=== PATIENT | female | born 1980 ===

== ENCOUNTER 2023-10-07 13:36 | Outpatient (REF) | payer MEDICAID, SELFPAY ==
--- OUTSIDE RECORDS SUMMARY | 2023-10-07 13:38 | XMS_ITS ---
Author Organization Unknown Address [address] [place] [phone] Phone Care Team Providers Care Tank Cooper Name Role Phone BRADLEY TEAGUE Registered Nurse Unavailable CATERINA Augustin Attending Unavailable SHERYL Augustin [facility] Unavailable PCP NOT SELECTED Primary Unavailable UNLISTED PROVIDER - REQUESTED Xhandoff Un available Social History Type Status Start Date End Date Code Code Syst em Smoking History Current every day smoker 128421333 SNOMED CT Sex Female Vital Signs Vital Sign Value Unit [place] Value [place] Unit Date/Time Recent/Initial? Code Code System Body Mass Index 23.73 kg/m2 04/28/2023 11:36 Initial 70050 -5 [facility] Systolic Blood Pressure 124 mm[Hg] 04/28/2023 11:36 Initial 8480- 6 [facility] Diastolic Blood Pressure 68 mm[Hg] 04/28/2023 11:36 Initial 8462- 4 [facility] Body Surface Area 1.76 m2 04/28/2023 11:36 Initial 3140- 1 [facility] Height 167.640 0 cm 66.00 in 04/28/2023 11:36 Initial 8302- 2 [facility] O2 Saturation 99 % 2023 11:36 Initial 71535 -5 [facility] Pulse 71.0 /min 04/28/2023 11:36 Initial 8867- 4 [facility] Respiration 16 /min 04/28/19 11:36 Initial 9279- 1 [facility] Temperature 35.9 [place] 96.6 F 04/28/19 11:36 Initial 8310- 5 [facility] Weight 66.68 kg 147.00 lbs 04/28/2023 11:36 Initial 99137 -7 [facility] Medications Medication Start Date End Date Route Frequency Dose Code Code System Medication Instructions Home Meds DULoxetine HCl 60MG Oral Capsule, Delayed Release 04/28/2023 Unknown ORAL DAILY 1 CAPSULE 719252 RxNorm MARTINEZ E 1 CAPSULE ORAL DAILY Lyrica 150MG Oral Capsule 04/28/2023 Unknown ORAL THREE TIMES A DAY 1 CAPSULE 608831 RxNorm TAKE 1 CAPSULE ORAL THREE TIMES A DAY Topiramate 50MG Oral Capsule, Extended Release 04/28/2023 Unknown ORAL DAILY 1 CAPSULE 3612786 RxNorm TAKE 1 CAPSULE ORAL DAILY Assessment You had the following problems:ASTHMACOPPER DEFICIENCY Hospital Discharge Instructions Should you have any questions prior to discharge, please contact a member of your healthcare team. If you have left the hospital and have any questions, please contact your primary care physician. Reason For Referral No Data Found Procedures Procedure Name Date Status Code Code Syste m Neck completed 83074505 SNOMEDCT C section completed 19976712 SNOMEDCT Abscess of breast completed 94733925 SNOMEDC T Problems Problem Start Date Resolved Date Status Code Code System ASTHMA active 579051755 SNOMED-CT COPPER DEFICIENCY active 24866650 SN OMED-CT Allergies and Adverse Reactions Allergy Substance Reaction Severity Start Date Concern Status Co de Code System LORTAB Hives (SNOMED-CT: 207181363) Active 523332 RxNorm Plan of Treatment No Data Found Encounters Encounter Diagnosis Start Date Code Code Sys tem Repeat prescription monitoring 04/28/2023 383749585 SNOMED-CT Personal Care Team Section Performer Name Performer Role Active Date Inactive Tez barton
--- OUTSIDE RECORDS SUMMARY | 2023-10-07 13:38 | XMS_ITS | Data Portability ---
Author Organization [place] - [facility] [place] [address] Assessment No assessment recorded. Plan of Treatment Reminders Order Date Submit Date Provider Last Modified By Organization Details Last Modified Time Details Appointments New Patient 40 2023 10:00A M CAROLINE GAY Not available Not available Not available Follow Up 30 2023 04:10P M CAROLINE GAY Not available Not available Not available Lab None recorded. Referral None recorded. Procedures None recorded. Surgeries None recorded. Imaging None recorded. Medication Orders Symbicort 160 mcg-4.5 mcg/actua tion HFA aerosol inhaler 2022 023 [facility] [address] [facility] [address], [place], [address], 03/08/2023 12:26:54 topiramat e 50 mg tablet 2022 023 [facility] [address] [facility] [address], [place], [address], 03/08/2023 12:26:51 Ventolin HFA 90 mcg/actua tion aerosol inhaler 2022 023 [facility] [address] [facility] [address], [place], [address], 03/08/2023 12:26:52 ipratropi um 0.5 mg-albute rol 3 mg (2.5 mg base)/3 mL nebulizat ion soln 2022 023 [facility] [address] [facility] [address], [place], [address], 03/08/2023 12:26:55 Patient TargetsNo targets recorded. Patient InstructionsNo instructions recorded. Reason for Referral None Reported. 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 Medical Equipment None Reported. Allergies Allergen ID Allergen Name Allergen Category Reaction Reaction Severity Criticality Documentation Date Start Date Code Code System Note Provider Name and Address Organization Details Recorded Time 57514 hydrocodo ne Not available rash moderate low 03/08/2023 5489 RxNorm RONIT Zaragoza [facility], [facility] 12:03:10 No known drug allergies Medications Name Sig Start Date Stop Date Status Note LastModified by Organization Details LastModified Time prednisone 10 mg tablet TAKE 6 TABLETS BY MOUTH ONCE DAILY FOR 2 DAYS THEN DECREASE BY 1 TABLET EVERY 2 DAYS UNTIL GONE 10/06 completed Not Available Not Available Not Available doxycycline hyclate 100 mg capsule TAKE ONE CAPSULE BY MOUTH TWICE A DAY FOR 10 DAYS 10/06 completed Not Available Not Available Not Available ipratropium 0.5 mg-albutero l 3 mg (2.5 mg base)/3 mL nebulizatio n soln Inhale 3 mL 4 times a day by nebulizat ion route as needed. 2023 active Not Available Not Available Not Avai lable pyridoxine (vitamin B6) 100 mg tablet Take 1 tablet every day by oral route. 2023 active Not Available Not Available Not Avai lable Ventolin HFA 90 mcg/actuati on aerosol inhaler Inhale 2 puffs every 4 hours by inhalatio n route. 2023 active Not Available Not Available Not Avai lable copper gluconate 2 mg tablet Take 1 tablet every day by oral route. 2023 active Not Available Not Available Not Avai lable Klor-Con M10 mEq tablet,exte nded release Take 1 tablet every day by oral route. 2023 active Not Available Not Available Not Avai lable topiramate 50 mg tablet Take 1 tablet twice a day by oral route as needed. 2023 active Not Available Not Available Not Avai lable duloxetine 60 mg capsule,del ayed release Take 1 capsule every day by oral route. 2023 active Not Available Not Available Not Avai lable Atrovent HFA 17 mcg/actuati on aerosol inhaler Inhale 2 puffs 4 times a day by inhalatio n route. 2023 active Not Available Not Available Not Avai lable pregabalin 150 mg capsule Take 1 capsule twice a day by oral route. active Not Available Not Available No t Available Diflucan 03/08 completed Not Available Not Available Not Available Symbicort 160 mcg-4.5 mcg/actuati on HFA aerosol inhaler Inhale 2 puffs twice a day by inhalatio n route as needed. 2023 active Not Available Not Available Not Avai lable EpiPen 2-Eugene 0.3 mg/0.3 mL injection, auto-inject or Use to inject as needed with exposure to allergen 2023 active Not Available Not Available Not Avai lable topiramate XR 50 mg capsule sprinkle,ex tended release 24 hr Take 1 capsule every day by oral route. 2023 active Not Available Not Available Not Avai lable Vitals Date Recorded Body temperature Provider Name a nd Address Organization Details Last Updated DateTime 03/08/2023 97.9 [degF] RONIT WELCH MA [facility] 03/08/2023 11:58:32 Date Recorded Oxygen saturation Oxygen saturation in Arterial blood by Pulse oximetry Heart rate Body temperature Body height Body mass index (BMI) Body weight Systolic blood pressure Diastolic blood pressure Provider Name and Address Organization Details Last Updated DateTime 4 97 % 97 % 72 /min 98.2 [degF] 166.37 cm 22.9 kg/m2 68168.2 1 g 104 mm[Hg] 72 mm[Hg] Mary Murillo LPN [facility] 4 10:16:05 Social History Question Answer Notes LastModified by Organizat ion Details LastModified Time Tobacco Smoking Status Current Every Day Smoker Mary Murillo [facility] 10/07/2023 10:10:07 Would You Say That, In General, Your Health Is Poor [email or web address] Information not available 10/06/2023 How Often Does Anyone, Including Family, Physically Hurt You? Never Information not available 10/06/2023 How Often Does Anyone, Including Family, Insult Or Talk Down To You? Frequently [email or web address] Information no t available 10/06/2023 How Often Does Anyone, Including Family, Threaten You With Harm? Never [email or web address] Information not available 10/06/2023 How Often Does Anyone, Including Family, Scream Or Curse At You? Sometimes [email or web address] Information not available 10/06/2023 Within The Past 12 Months, You Worried That Your Food Would Run Out Before You Got Money To Buy More. Never True Information n ot available 10/06/2023 Within The Past 12 Months, The Food You Bought Just Didn't Last And You Didn't Have Money To Get More. Never True [email or web address] Information n ot available 10/06/2023 How Hard Is It For You To Pay For The Very Basics Like Food, Housing, Medical Care, And Heating? Would You Say It Is: Not Hard At All [email or web address] Information not available 10/06/2023 In The Past 12 Months, Has Lack Of Reliable Transportation Kept You From Medical Appointments, Meetings, Work Or From Getting Things Needed For Daily Living? No [email or web address] Information not available 10/06/2023 What Is Your Housing Situation Today? I Have Housing. [email or web address] Information not available 10/06/2023 How Often In The Past Year Have You Used Marijuana (including Smoking, Vaping, Dabbing, Or Edibles)? Never [email or web address] Information not available 10/06/2023 How Often In The Past Year Have You Used Prescription Medications That Were Not Prescribed To You? Never [email or web address] Information n ot available 10/06/2023 How Often In The Past Year Have You Taken Your Own Prescription Medication More Than The Way It Was Prescribed Or For Different Reasons Than Its Intended Purpose? Never [email or web address] Information no t available 10/06/2023 How Often In The Past Year Have You Used Other Drugs (for Example, Heroin, Cocaine, Meth, Salvia, Inhalants)? Never [email or web address] Information not available 10/06/2023 Have You Ever Used IV Drugs? No [email or web address] Information not available 10/06/2023 Date Of Most Recent SBINS 07/13/2023 [email or web address] Information not available 10/06/2023 What Was The Date Of Your Most Recent Tobacco Screening? 10/07/2023 [email or web address] Information not available 10/07/2023 What Is Your Current Pack Years? 20-29packyears [email or web address] Information not available 10/07/2023 How Much Tobacco Do You Smoke? 1 PPD About 1 1/2 Packs Daily [email or web address] Information not available 10/07/2023 How Many Years Have You Smoked Tobacco? 25 ? [email or web address] Information not available 10/07/2023 Sex: Unknown Functional Status None recorded. Mental Status None recorded. Family History Relationship Description Onset Age of this Age Resolved Age Notes Notes:father with stomach CA , dx age 60, [place] 2004. Medical History No medical history recorded. Gynecological HistoryNo gynecological history recorded. Obstetrics History GPAL:G 0 P 0 0 0 0 Past Encounters Encounter ID Performer Location Encounter Start Date Encounter Closed Date Diagnosis/Indication Diagnosis SNOMED-CT Code [id number] THERESA ROMO PA-C [facility] [address] [address] 03/08/2023 11:40:51 03/08/2023 12:28:44 Renewal of prescription 550973074 [id number] Genoveva Hennessy [facility] [address] [place] [address] 10/07/2023 09:58:58 10/07/2023 11:28:26 Asthma 742223439 Anemia 913352247 Hypokalemia 39984619 Allergic r eaction to bee sting 846353252 History of acute kidney injury 713485802254739 Renewal of prescription 490573577 Health Concerns Section Related Observation LastModified by Organization Detai ls LastModified Time None Recorded Concern Status LastModified by Organization Details LastModified Time None Recorded Advance Directives Directive None Recorded Payers Encounter Date Sequence Insurance Name Policy Number Policy Jordan Covered Member ID Jordan Member ID Guarantor Name 03/08/2023 1 [facility] (MEDICAID) Emerald Langford [id number] Emerald Langford Notes Date Note Type Note Provider Name and Address Organization Details Recorded Time 03/08/2023 text/html HPI Notes: Brittney martin is a 42-year-old female presenting for medication refill. She is new to the area, moved up from [place] has yet to establish care with a primary care provider. She has completed paperwork for the [facility] but is awaiting to be scheduled for her first visit. She is unsure of all of her medications that she takes, reports history of migraine headaches asthma and neuropathy. We were able to get her asthma and migraine medication last from the EMR. States she has gone without her medications for the past few weeks. Noticing increasing wheezing and difficulty breathing at times. At this time breathing is doing okay. No fevers or chills. No chest pain runny nose. No headache. [address], [place], [address], [facility]. 03/08/2023 12:32:46 OBGyn Episode No OBEpisode recorded.
[2023-10-07 15:24] LABS: HCT 47.3 % (36.0-46.0); HGB 16.1 g/dL (11.2-15.7); MCH 35.5 pg (27.0-33.0); MCV 104 fL (80-95); MPV 10.9 fL (8.0-11.0); Platelet Count 282 10^3/uL (130-400); RBC 4.53 10^6/uL (3.93-5.22); RDW 14.5 % (11.7-14.6); RDW-SD 55.8 fL; WBC 11.36 10^3/uL (4.4-10.8)
[2023-10-07 15:56] LABS: Iron 67 ug/dL (50-170); Total Iron Binding Capacity 337 ug/dL (250-450); Transferrin Sat 20 % (15-50)
[2023-10-07 16:11] LABS: ALT 21 U/L (14-59); AST 25 U/L (15-37); Albumin 3.4 g/dL (3.4-5.0); Alkaline Phosphatase 99 U/L (46-116); Anion Gap 6.3 mmol/L (3-11); BUN 5 mg/dL (7-18); Bilirubin, Total 0.38 mg/dL (0.2-1.0); CO2 31.7 mmol/L (21.0-32.0); CREATININE 0.8 mg/dL (0.55-1.02); Chloride 104 mmol/L (98-107); Estimated GFR 94.87 (mL/min/1.73m2); Ferritin 87 ng/mL (8-252); Folate 2.3 ng/mL (8.6-20.0); Glucose 81 mg/dL (74-106); Magnesium 1.9 mg/dL (1.8-2.4); Potassium 4.4 mmol/L (3.5-5.1); Sodium 142 mmol/L (136-145); Total Protein 6.7 g/dL (6.4-8.2); Vitamin B12 371 pg/mL (193-986); Vitamin D 25 Total 20.3 ng/mL (30-100)
[2023-10-08 13:15] LABS: Transferrin 215 mg/dL (201-352)
== END 2023-10-07 13:37 | disposition home or self-care (01) ==
LOC: NCHCN 13:36
PROVIDERS: Visit Provider Family Medicine
DX: E83.42 Hypomagnesemia (principal); E11.9 Type 2 diabetes mellitus without complications; Z87.448 Personal history of other diseases of urinary system; Z86.39 Personal history of other endocrine, nutritional and metabolic disease
CPT/HCPCS: 80053; 82306; 85027; 82607; 82728; 82746; 83036; 83540; 83550; 83735; 84466

== ENCOUNTER 2024-01-21 16:14 | Outpatient (REF) | payer MEDICAID, SELFPAY | END 2024-01-21 16:15 | disposition home or self-care (01) | LOC: NCHCN 16:14 | PROVIDERS: Visit Provider Internal Medicine | DX: R39.9 Unspecified symptoms and signs involving the genitourinary system (principal); B96.29 Other Escherichia coli [E. coli] as the cause of diseases classified elsewhere | CPT/HCPCS: 87077; 87086; 87186 ==

== ENCOUNTER 2024-05-09 15:30 | Outpatient (REF) | payer MEDICAID, SELFPAY | END 2024-05-09 15:31 | disposition home or self-care (01) | LOC: NCHCN 15:30 | PROVIDERS: PCP Physician Assistant; Visit Provider Physician Assistant | DX: R39.9 Unspecified symptoms and signs involving the genitourinary system (principal) | CPT/HCPCS: 87077; 87086; 87186 ==